=== PATIENT | male | born 1995 | race Caucasian/White ===

== ENCOUNTER 2017-11-20 05:01 | Emergency (ER) | payer BC ==
[~2017-11-20] VITALS: Ht 182.9 cm; Wt 86.2 kg
[~2017-11-20 05:01] MED LIST: Aspirin/Acetaminophen/Caffeine PO; CHOL10002 PO; DICY20TA28 PO; Docusate Sodium PO; Doxycycline Hyclate PO; GENT5DRO4 RIGHTEYE; Gabapentin PO; HYDR-3895 PO; MULT-24 PO; PANT40TA2 PO
[2017-11-20] MEDS ORDERED: ALPR1TAB7 PO (05:21)
[2017-11-20] MEDS: PANTOPRAZOLE SODIUM 40 MG VIAL IV ONE (05:30)
[2017-11-20] MEDS ORDERED: PANTOPRAZOLE SODIUM 40 MG VIAL ONE (05:32)
[2017-11-20] MEDS ORDERED: ONDANSETRON 4 MG/2 ML VIAL ONE (05:33)
[2017-11-20] MEDS: IV NORMAL SALINE 1000 ML BAG IV ONE ×2 (05:34→06:26)
[2017-11-20] MEDS: ONDANSETRON 4 MG/2 ML VIAL IV ONE (05:37)
[2017-11-20 05:44] LABS: *BLOOD, URINE Trace-lysed (NEGATIVE); *CLARITY,URINE CLEAR (CLEAR); *COLOR,URINE YELLOW (YELLOW); *KETONES,URINE 2+ (NEGATIVE); *PROTEIN,URINE 1+ (NEGATIVE); *UROBILINOGEN,URINE 0.2 E.U./dl (NORMAL); LEUKOCYTE ESTERASE ,URINE NEGATIVE (NEGATIVE); NITRITE, URINE NEGATIVE (NEGATIVE); UGLUCOSE NEGATIVE (NEGATIVE)
[2017-11-20 05:44] LABS: BASOPHILS % (AUTO) 0.5 % (0.0-2.0); EOSINOPHILS # (AUTO) 0.1 K/uL (0.0-0.7); EOSINOPHILS % (AUTO) 1.8 % (0.0-7.0); HEMATOCRIT 46.4 % (36.7-47.1); HEMOGLOBIN 16.2 g/dL (12.5-16.3); LYMPHOCYTES # (AUTO) 1.7 K/uL (20.0-40.0); LYMPHOCYTES % (AUTO) 29.5 % (20.5-74.5); MEAN CORPUSCULAR HEMOGLOBIN 32.1 uug (23.8-33.4); MEAN CORPUSCULAR HGB CONC 35 g/dL (32.5-36.3); MEAN CORPUSCULAR VOLUME 91.7 fL (73.0-96.2); MONOCYTES # (AUTO) 0.6 K/uL (2.0-10.0); MONOCYTES % (AUTO) 9.7 % (0-11); NEUTROPHILS # (AUTO) 3.5 K/uL (1.8-8.9); NEUTROPHILS % (AUTO) 58.5 % (31.5-64.5); PLATELET COUNT (AUTO) 268 K/uL (152-348); RED BLOOD CELL COUNT(AUTO) 5.06 MIL/uL (4.06-5.63); WHITE BLOOD COUNT (AUTO) 5.9 K/uL (3.6-10.2)
[2017-11-20 05:47] LABS: CREATININE 1.2 mg/dL (0.6-1.3); POTASSIUM 3.8 mmol/L (3.5-5.1)
[2017-11-20 05:49] LABS: *BILIRUBIN,URIN 1+ (NEGATIVE)
[2017-11-20 05:53] LABS: BILIRUBIN,DIRECT 0.4 mg/dL (0.0-0.2); BILIRUBIN,TOTAL 2.1 mg/dL (0.2-1.0); TOTAL PROTEIN, SERUM 9.1 g/dL (6.4-8.2)
[2017-11-20 05:53] LABS: BACTERIA,URINE NONE SEEN /HPF (NONE SEEN); SQUAMOUS EPITHELIAL CELL,UR FEW /HPF (NONE SEEN)
[2017-11-20 05:56] LABS: *AMPHETAMINE, URINE POSITIVE (NEGATIVE); *BARBITURATE, URINE NEGATIVE (NEGATIVE); *CANNABINOID, URINE POSITIVE (NEGATIVE); *COCCAINE, URINE NEGATIVE (NEGATIVE); *OPIATE, URINE NEGATIVE (NEGATIVE); *PHENCYCLIDINE SCREEN,URINE NEGATIVE (NEGATIVE)
--- NOTE | 2017-11-20 06:06 | NUR ---
Patient taken to CT via gurney with transport.
--- NOTE | 2017-11-20 07:27 | NUR ---
Report given to Claudio RITCHIE. Patient in bed, no acute distress noted.
--- NOTE | 2017-11-20 08:41 | NUR ---
PT WAS D/C TO HOME. D/C INSTRUCTIONS GIVEN TO THE PT. NO S/S OF DISTRESS AT THE TIME OF DISCHARGE.
[2017-11-20 08:42] VITALS: BP 132/79
== END 2017-11-20 08:43 | disposition home or self-care (01) ==
LOC: ER 05:07
DX: R10.30 Lower abdominal pain, unspecified (principal); F19.10 Other psychoactive substance abuse, uncomplicated; F17.210 Nicotine dependence, cigarettes, uncomplicated; Z79.82 Long term (current) use of aspirin; Z79.899 Other long term (current) drug therapy; Z79.2 Long term (current) use of antibiotics
CPT/HCPCS: 36415; 71045; 74176; 80048; 80076; 80307; 81001; 83690; 84484; 85025; 85730; 93005; 96361; 96374; 96375; 99285; A4663; C9113; J2405; J7030 ×2; 70030-TC

== ENCOUNTER 2018-06-23 20:13 | Emergency (ER) | payer BC ==
[~2018-06-23] VITALS: Ht 180.3 cm; Wt 81.6 kg
[~2018-06-23 20:13] MED LIST changes: +ALPR1TAB7 PO; -Aspirin/Acetaminophen/Caffeine PO; -CHOL10002 PO; -DICY20TA28 PO; -Docusate Sodium PO; -Doxycycline Hyclate PO; -GENT5DRO4 RIGHTEYE; -Gabapentin PO; -HYDR-3895 PO; -MULT-24 PO; -PANT40TA2 PO
[2018-06-23 21:32] LABS: BASOPHILS # (AUTO) 0.1 K/uL (0.0-8.0); BASOPHILS % (AUTO) 0.5 % (0.0-2.0); EOSINOPHILS % (AUTO) 0.2 % (0.0-7.0); HEMATOCRIT 43.6 % (36.7-47.1); HEMOGLOBIN 15.4 g/dL (12.5-16.3); LYMPHOCYTES # (AUTO) 1.1 K/uL (20.0-40.0); LYMPHOCYTES % (AUTO) 11.5 % (20.5-51.5); MEAN CORPUSCULAR HEMOGLOBIN 32.7 uug (23.8-33.4); MEAN CORPUSCULAR HGB CONC 35 g/dL (32.5-36.3); MEAN CORPUSCULAR VOLUME 92.6 fL (73.0-96.2); MONOCYTES # (AUTO) 0.8 K/uL (2.0-10.0); MONOCYTES % (AUTO) 7.9 % (0.0-11.0); NEUTROPHILS % (AUTO) 79.9 % (38.5-71.5); PLATELET COUNT (AUTO) 351 K/uL (152-348)
[2018-06-23 21:35] LABS: POTASSIUM 3.4 mmol/L (3.5-5.1)
[2018-06-23 21:49] LABS: BILIRUBIN,DIRECT 0.1 mg/dL (0.0-0.2); BILIRUBIN,TOTAL 0.5 mg/dL (0.2-1.0); TOTAL PROTEIN, SERUM 8.3 g/dL (6.4-8.2)
[2018-06-23] MEDS ORDERED: METOPROLOL TARTRATE 5 MG/5 ML VIAL IVP ONE ×2 (23:30→23:42)
--- NOTE | 2018-06-24 00:13 | NUR ---
IV removed. Catheter intact and site benign. Pressure and 4x4 gauze applied to site. No bleeding noted.
--- NOTE | 2018-06-24 00:13 | NUR ---
Patient discharged to home in stable conditon. Written and verbal after care instructions given. Patient verbalizes understanding of instructions.
[2018-06-24 00:14] VITALS: BP 104/72
== END 2018-06-24 00:15 | disposition home or self-care (01) ==
LOC: ER 20:15
DX: R07.89 Other chest pain (principal); F15.93 Other stimulant use, unspecified with withdrawal
CPT/HCPCS: 36415; 70030-TC; 71045; 85025; 85730; 93005; A4663; J3490

== ENCOUNTER 2021-08-25 23:51 | Emergency (ER) | payer BC ==
[~2021-08-25] VITALS: Ht 180.3 cm; Wt 81.6 kg
[2021-08-26] MEDS ORDERED: LORAZEPAM 2 MG/1 ML VIAL IV ONE (00:15)
[2021-08-26] MEDS ORDERED: IV NORMAL SALINE 1000 ML BAG IV ONE (00:15)
[2021-08-26] MEDS ORDERED: ONDANSETRON 4 MG/2 ML VIAL IV ONE (00:15)
[2021-08-26] MEDS ORDERED: HYDROMORPHONE 1 MG/1 ML DISP.SYRIN IV ONE (00:15)
[2021-08-26] MEDS ORDERED: LORAZEPAM 2 MG/1 ML VIAL ONE (00:18)
[2021-08-26] MEDS ORDERED: HYDROMORPHONE 1 MG/1 ML DISP.SYRIN ONE (00:18)
[2021-08-26] MEDS ORDERED: ONDANSETRON 4 MG/2 ML VIAL ONE (00:18)
[2021-08-26 00:31] LABS: HEMATOCRIT 38.4 % (36.7-47.1); MEAN CORPUSCULAR HEMOGLOBIN 31.4 uug (23.8-33.4); MEAN CORPUSCULAR VOLUME 91.7 fL (73.0-96.2); PLATELET COUNT (AUTO) 259 K/uL (152-348)
[2021-08-26 01:06] LABS: BILIRUBIN,DIRECT 0.2 mg/dL (0.0-0.2); BILIRUBIN,TOTAL 0.7 mg/dL (0.2-1.0); CREATININE 1.1 mg/dL (0.6-1.3)
[2021-08-26] MEDS ORDERED: HYDR-3980 PO (01:11)
[2021-08-26] MEDS ORDERED: ONDA4TAB5 PO (01:11)
[2021-08-26 01:51] LABS: ETHANOL < 3 MG/DL (0-0)
--- NOTE | 2021-08-26 02:00 | NUR ---
IV removed. Catheter intact and site benign. Pressure and 4x4 gauze applied to site. No bleeding noted.
--- NOTE | 2021-08-26 02:07 | NUR ---
Patient discharged to home in stable condition. Written and verbal after care instructions given. Patient verbalizes understanding of instructions. Stressed follow up or return to ER for worsening s/s.
[2021-08-26 02:08] VITALS: BP 116/75
[2021-08-26 02:28] LABS: ACETAMINOPHEN < 2.0 ug/mL (10-30)
== END 2021-08-26 02:09 | disposition home or self-care (01) ==
LOC: ER 23:59
DX: M79.662 Pain in left lower leg (principal); M79.661 Pain in right lower leg; R10.9 Unspecified abdominal pain; R07.9 Chest pain, unspecified; Z20.822 Contact with and (suspected) exposure to COVID-19; F41.9 Anxiety disorder, unspecified; F11.20 Opioid dependence, uncomplicated; F13.20 Sedative, hypnotic or anxiolytic dependence, uncomplicated
CPT/HCPCS: 36415; 71045; 80048; 80076; 80299; 80320; 83690; 84484; 85025; 87426; 93005; 93970; 96361; 96374; 96375; 99285; J1170; J2060; J2405; 70030-TC; G0480; J7030

== ENCOUNTER 2025-08-03 01:09 | Emergency (ER) | payer SELFPAY ==
[~2025-08-03] VITALS: Ht 177.8 cm; Wt 81.6 kg
[~2025-08-03 01:09] MED LIST changes: +HYDR-3980 PO; +ONDA4TAB5 PO
[2025-08-03 02:13] VITALS: BP 112/71; O2SAT 98
[2025-08-03 02:58] LABS: PLATELET COUNT (AUTO) 269 K/uL (152-348); RED BLOOD CELL COUNT(AUTO) 4.10 MIL/uL (4.06-5.63); RED CELL DISTRIBUTION WIDTH 15.1 % (12.1-16.2); WHITE BLOOD COUNT (AUTO) 8.1 K/uL (3.6-10.2)
[2025-08-03 02:59] LABS: *BILIRUBIN,URIN NEGATIVE (NEGATIVE); *BLOOD, URINE 2+ (NEGATIVE); *CLARITY,URINE TURBID (CLEAR); *COLOR,URINE YELLOW (YELLOW); *KETONES,URINE NEGATIVE (NEGATIVE); *PROTEIN,URINE 1+ (NEGATIVE); *UROBILINOGEN,URINE 0.2 E.U./dl (NORMAL); LEUKOCYTE ESTERASE ,URINE 1+ (NEGATIVE); NITRITE, URINE NEGATIVE (NEGATIVE); UGLUCOSE NEGATIVE (NEGATIVE)
[2025-08-03 03:06] LABS: SODIUM SERUM 142 mmol/L (136-145)
[2025-08-03 03:10] LABS: CREATININE 0.8 mg/dL (0.6-1.3); UREA NITROGEN, BLOOD 15 mg/dL (7-18)
[2025-08-03 03:13] LABS: ETHANOL < 3 MG/DL (0-10)
[2025-08-03 03:15] LABS: *AMPHETAMINE, URINE NEGATIVE (NEGATIVE); *BARBITURATE, URINE NEGATIVE (NEGATIVE); *BENZODIAZEPINE, URINE NEGATIVE (NEGATIVE); *CANNABINOID, URINE POSITIVE (NEGATIVE); *COCCAINE, URINE NEGATIVE (NEGATIVE); *OPIATE, URINE NEGATIVE (NEGATIVE); *PHENCYCLIDINE SCREEN,URINE NEGATIVE (NEGATIVE); FENTANYL, URINE NEGATIVE (NEGATIVE)
[2025-08-03 03:18] LABS: ASPARTATE AMINOTRANSFERASE 33 U/L (15-37); TOTAL PROTEIN, SERUM 7.8 g/dL (6.4-8.2)
[2025-08-03] MEDS ORDERED: NITROFURANTOIN/NITROFURAN MAC 100 MG CAPSULE PO ONE (03:59)
[2025-08-03] MEDS: NITROFURANTOIN/NITROFURAN MAC 100 MG CAPSULE PO ONE (04:01)
[2025-08-03] MEDS ORDERED: NITR-84 PO (04:40)
[2025-08-03 04:49] VITALS: BP 117/68
== END 2025-08-03 04:50 | disposition home or self-care (01) ==
LOC: ER 01:36
DX: F41.9 Anxiety disorder, unspecified (principal); F13.20 Sedative, hypnotic or anxiolytic dependence, uncomplicated; F32.A Depression, unspecified; G47.00 Insomnia, unspecified; R07.89 Other chest pain; Z79.899 Other long term (current) drug therapy
CPT/HCPCS: 71045; 84443; 85025; 87086; A4606; A4663; G0480